=== PATIENT | male | born 1980 | race Caucasian/White ===

== ENCOUNTER 2020-01-27 02:43 | Emergency (ER) | payer OTHER ==
[~2020-01-27] VITALS: Ht 170.2 cm; Wt 147.0 kg
[2020-01-27 05:05] VITALS: BP 155/85
== END 2020-01-27 05:05 | disposition home or self-care (01) ==
LOC: ED 02:43
DX: K08.89 Other specified disorders of teeth and supporting structures (principal)
CPT/HCPCS: J1885; J2270; J3490; Q0162